=== PATIENT | male | born 1940 | race Caucasian/White ===

== ENCOUNTER → 2016-04-11 | Outpatient (CLI) | payer BC ==
[~2016-04-11] MED LIST: LEVO200T PO; METO25TA3 PO; RIVA1TAB4 PO; SIMV10TA2 PO
[2016-04-11 09:48] LABS: BASO % 0.5 %; BASO ABS # 0.04 K/uL (0-0.2); COMPLETE YES; IG% 0.1 %; LYMPH % 27.2 %; LYMPH ABS # 2.27 K/uL (1.2-3.4); MEAN CELL VOLUME 86.4 fL (80-100); MEAN CORPUSCULAR HEMOGLOBIN 29.5 pg (25-34); MEAN CORPUSCULAR HGB CONC 34.1 g/dl (32-36); MEAN PLATELET VOLUME 9.6 fL (7.4-10.4); NEUT % 56.2 %; PLATELET COUNT 283 K/uL (130-400); RED BLOOD COUNT 5.67 M/uL (4.7-6.1); WHITE BLOOD COUNT 8.35 K/uL (4.8-10.8)
[2016-04-11 10:24] LABS: ALT/SGPT 48 U/L (12-78); BLOOD UREA NITROGEN 14 mg/dl (7-18); BUN/CREATININE RATIO 16.4 (10-20); CALCIUM 8.9 mg/dl (8.5-10.1); CARBON DIOXIDE 28 mmol/L (21-32); CHLORIDE 109 mmol/L (98-107); CREATININE 0.86 mg/dl (0.60-1.40); GLUCOSE 95 mg/dl (70-99); POTASSIUM 4.6 mmol/L (3.5-5.1); SODIUM 145 mmol/L (136-145)
[2016-04-11 10:34] LABS: ALB/GLOB RATIO 1.3 (0.9-2); ALKALINE PHOSPHATASE 104 U/L (45-117); AST/SGOT 24 U/L (15-37); CHOLESTEROL 139 mg/dl (0-200); CHOLESTEROL/HDL RATIO 4.8; HDL CHOLESTEROL 29 mg/dl; LDL CHOLESTEROL CALCULATED 80 mg/dl; THYROID STIMULATING HORMONE 0.067 uIu/ml (0.300-4.500); TRIGLYCERIDES 151 mg/dl (0-150); VERY LOW DENSITY LIPOPROT CALC 30 mg/dl
== END | disposition home or self-care (01) ==
LOC: C.LAB1850 07:23
PROVIDERS: ATTEND Internal Medicine Pulmonary Disease
DX: C67.9 Malignant neoplasm of bladder, unspecified (principal)

== ENCOUNTER → 2017-01-07 | Outpatient (CLI) | payer BC ==
[2017-01-07 09:57] LABS: CHOLESTEROL 120 mg/dl (0-200); CHOLESTEROL/HDL RATIO 4.8; HDL CHOLESTEROL 25 mg/dl; LDL CHOLESTEROL CALCULATED 66 mg/dl; PROSTATE SPECIFIC ANTIGEN < 0.010 ng/ml (0.000-4.000); TRIGLYCERIDES 144 mg/dl (0-150); VERY LOW DENSITY LIPOPROT CALC 29 mg/dl
== END | disposition home or self-care (01) ==
LOC: C.LAB1850 07:17
PROVIDERS: ATTEND Internal Medicine Cardiovascular Disease
DX: C61 Malignant neoplasm of prostate (principal); I10 Essential (primary) hypertension

== ENCOUNTER → 2017-01-29 | Outpatient (CLI) | payer BC | END | disposition home or self-care (01) | LOC: C.PATHSPEC 10:48 | PROVIDERS: ATTEND Urology | DX: C67.9 Malignant neoplasm of bladder, unspecified (principal) ==

== ENCOUNTER → 2017-06-19 | Outpatient (CLI) | payer BC ==
[~2017-06-19] MED LIST changes: -METO25TA3 PO; +METO25TA4 PO
--- NOTE | 2017-06-19 15:27 | DIAGNOSTIC IMAGING REPORT ---
CHEST 2 VIEWS ROUTINE CLINICAL HISTORY: 76 years-old Male presenting with Z00.00 Health Maintenance E03.9 Hypothyroidism C67.9 Carcinoma, shortness of breath and wheezing. TECHNIQUE: PA and lateral views of the chest were obtained. COMPARISON: 03/28/2012. FINDINGS: Atherosclerosis of the aortic arch. Cardiac silhouette top normal in size. Lungs and pleural spaces clear. Osseous structures normal. Cholecystectomy clips noted. IMPRESSION: 1. No acute cardiopulmonary disease. Electronically signed by: Danyel Husain M.D. 06/19/2017 3:26 PM Dictated Date/Time: 06/19/2017 3:25 PM
[2017-06-19 16:31] LABS: BASO % 0.2 %; BASO ABS # 0.03 K/uL (0-0.2); EOS % 0.8 %; HEMATOCRIT 46.4 % (42-52); HEMOGLOBIN 15.7 g/dL (14.0-18.0); IG# 0.03 K/uL (0.00-0.02); LYMPH % 14.9 %; MEAN CELL VOLUME 88.2 fL (80-100); MEAN CORPUSCULAR HEMOGLOBIN 29.8 pg (25-34); MEAN CORPUSCULAR HGB CONC 33.8 g/dl (32-36); MEAN PLATELET VOLUME 9.6 fL (7.4-10.4); MONO % 10.3 %; MONO ABS # 1.25 K/uL (0.11-0.59); NEUT % 73.6 %; NEUT ABS # 8.89 K/uL (1.4-6.5); PLATELET COUNT 296 K/uL (130-400); RED CELL DISTRIBUTION WIDTH CV 13.9 % (11.5-14.5); RED CELL DISTRIBUTION WIDTH SD 45.2 fL (36.4-46.3)
== END | disposition home or self-care (01) ==
LOC: C.RAD1850 15:00
PROVIDERS: ATTEND Internal Medicine Pulmonary Disease
DX: C61 Malignant neoplasm of prostate (principal); C67.9 Malignant neoplasm of bladder, unspecified; E03.9 Hypothyroidism, unspecified; I48.0 Paroxysmal atrial fibrillation; R06.2 Wheezing; Z00.00 Encounter for general adult medical examination without abnormal findings

== ENCOUNTER 2023-12-06 08:50 | Observation (INO) ==
[2023-12-06] MEDS: OPTIRAY 320 125ml IV ONE (09:02)
[2023-12-06] MEDS ORDERED: LABETALOL HCL IV 5 MG/ML 20ML IV PRN (09:20)
--- NOTE | 2023-12-06 09:28 | Emergency Department Note ---
Impression & Plan Visual changes, Facial paresthesia, Left hand paresthesia, HTN (hypertension) ED Provider Note ED Provider Note NAME: JAYCE RANGEL AGE:83 SEX: Male : 1940 ARRIVES VIA: private vehicle INFORMANT: Patient ED PROVIDER(s): Vandana Frazier DO CHIEF COMPLAINT: Vision changes, left face and left hand tingling HPI: This is an 83-year-old male brought in by family due to concern for strokelike symptoms. Patient states he woke at 715 and found his usual state of health. He states sometime between 730 and 8:00 he noticed blurred vision, left facial tingling, and left hand tingling. He denies any prior similar episodes. Patient did have cataract surgery over the summer but states he had recovered well from that and did have follow-up with his medical collections specialist. He states his vision had been well in recent days. Denies any recent change in medications or eyedrops. Denies any trauma or injury. He denies recent fevers or chills. He denied any accompanying difficulty speaking or leg weakness. at bedside states she woke up later and did not see him until approximately 815 when he verbalized these complaints to her. She states he did not appear to have a facial droop or appear off balance with ambulation. She states he does shuffle his feet as he does have Parkinson's disease. She states due to concern for possible stroke she helped him get dressed and brought him here to the emergency department. Patient states at this time he has no facial or left upper extremity paresthesias. He feels his vision is improving although not yet back to normal. Stroke alert called from triage by nursing staff. PAST MEDICAL HISTORY:See Below PAST SURGICAL HISTORY:See Below FAMILY HISTORY:See Below SOCIAL HISTORY:See Below HOME MEDICATIONS:See Below ALLERGIES:See Below VITALS:See Below PHYSICAL EXAMINATION: GENERAL: alert, well appearing, well nourished, no distress, non-toxic EYE EXAM: normal conjunctiva, PERRL and EOM's grossly intact OROPHARYNX: no exudate, no erythema, lips, buccal mucosa, and tongue normal and mucous membranes are moist NECK: supple, no nuchal rigidity, no adenopathy, non-tender LUNGS: Clear to auscultation. Normal chest wall mechanics, no w/r/r HEART: no murmurs, S1 normal and S2 normal ABDOMEN: abdomen soft, non-tender, normo-active bowel sounds, no masses, no rebound or guarding. BACK: Back is symmetrical on inspection and there is no deformity, no midline tenderness, no CVA tenderness. SKIN: no rashes, petechiae, orbruising UPPER EXTREMITIES: upper extremities are grossly normal. FROM, nml pulses b/l. LOWER EXTREMITIES: No pitting edema. FROM, nml pulses b/l. NEURO EXAM: Normal sensorium, cranial nerves II-XII grossly intact, normal speech, no facial droop,nogross weakness of arms, no gross weakness of legs. Gross sensation intact. No ataxia. NIHSS 0. Vital Signs: reviewed and remarkable Differential Diagnosis: Differential Diagnosis includes but is not limited to ischemic Stroke, hemorrhagic stroke, bells palsy, mass, neoplasm, migraine headache, seizure, subarachnoid hemorrhage, TIA, and transient global amnesia. MEDICAL DECISION MAKING: This is an 83-year-old male who presents emergency room with family bedside due to concern for possible strokelike symptoms. He was made a stroke alert in triage and taken immediately to CT. Upon his arrival back in room B1 I was able to perform a bedside exam, speak with him and his , and then contacted [facility]. First blood pressure in triage was elevated, however follow- up blood pressure was improved. Neurology did evaluate the patient at bedside and made additional recommendations. Case discussed with the hospitalist team for additional evaluation and management. Patient's blood pressure did continue to improve without further intervention. He was started on gentle IV fluid hydration as a precaution. Consultation(s): 0927: Discussed with [facility], Dr. Conner. 0955: Received [facility] Text from neuro regarding recommendations including aspirin 324 mg, Plavix 75 mg, atorvastatin 80 mg, all to be given now. 1008: Discussed with Dr. Salazar, [place] hospitalist team, for additional evaluation. ER Treatment Provided: See below Diagnostics Interpreted By Me: -ECG: Normal sinus at 81, first-degree AV block, right bundle branch block, rightward axis, nonspecific ST/T wave changes -Cardiac Monitoring: An order was placed for continuous cardiac monitoring. The monitor shows a rate of 80 with normal sinus rhythm. -Laboratory studies: As stated above and show below. -Imaging studies: CT head: No [facility] Triage Nursing Note Reviewed Prior/Outside Records Reviewed Past Med/Surg History Problem List (Updated 12/06/23 @ 10:27 by Riaz Salazar MD) Stroke-like symptoms Left hand paresthesia (Acute) Facial paresthesia (Acute) Visual changes (Acute) Tremor Parkinsonism Asthma HTN (hypertension) (Acute) A-fib Sensorineural hearing loss (SNHL) of both ears Hypothyroidism Dyslipidemia Transitional cell bladder cancer Right bundle branch block (RBBB) on electrocardiogram (ECG) (Acute) Reactive airway disease (Acute) Diverticulosis of colon (Acute) Disc degeneration, lumbar (Acute) Adenocarcinoma of prostate (Acute) Medical History Diverticulitis Postherpetic neuralgia Herpes zoster Acute cholecystitis Acute pancreatitis Former smoker Lumbar disc disease Visual disturbance Speech abnormality Surgical History H/O colonoscopy (~2006) Hx of tonsillectomy S/P cholecystectomy History of prostate surgery Family History Mother No problems noted. Father No problems noted. 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 Feels Safe at Home: Yes Assistive Devices: Hearing Aid - Bilateral Assistive Devices Comment: partial Allergies Allergies Allergy/AdvReac Type Severity Reaction Status Date / Time mometasone furoate Allergy Verified 12/06/23 10:21 [From Asmmindy Leos] Home Meds Home Medications Medication Instructions Recorded Confirmed ascorbic acid (vitamin C) 500 mg 500 mg PO QAM 03/17/18 12/06/23 tablet (Vitamin C) cyanocobalamin (vitamin B-12) 500 500 mcg PO QAM 03/17/18 12/06/23 mcg tablet (Vitamin B-12) ferrous sulfate 325 mg (65 mg 325 mg PO QAM 03/17/18 12/06/23 iron) tablet (Iron (ferrous sulfate)) levothyroxine 175 mcg tablet 175 mcg PO DAILYBB 09/09/23 12/06/23 metoprolol succinate 25 mg 25 mg PO QPM 12/06/23 12/06/23 tablet,extended release 24 hr multivit,calcium,min-folic acid 1 tab PO DAILY 12/06/23 12/06/23 240 mcg-D3 25 mcg-lycop 300 mcg tablet (One A Day Men Complete) Previous Rx's Medication Instructions Recorded albuterol sulfate 90 mcg/actuation 2 puff inhalation Q6H PRN 06/12/21 aerosol inhaler (ProAir HFA) shortness of breath or wheezing #6.7 grams rivaroxaban 20 mg tablet 20 mg PO DAILY #30 tabs 01/21/23 clopidogrel 75 mg tablet 75 mg PO QAM #90 tabs 02/26/23 simvastatin 10 mg tablet 10 mg PO HS #90 tabs 02/26/23 carbidopa 25 mg-levodopa 100 mg 1 tab PO TID 30 days #90 tabs 12/05/23 tablet (Sinemet) Results & Data (ED) Vital Signs Vital Signs - 24 hr 12/06/23 08:52 12/06/23 09:30 12/06/23 09:32 Temperature 36.3 C L Temperature Source Oral Pulse Rate 78 139 H Pulse Rate [Apical] 104 H Pulse Rate from SpO2 Sensor Pulse Rhythm [Apical] Regular Pulse Strength [Apical] Normal Respiratory Rate 20 16 Respiratory Effort / Characteristics Non-Labored Spontaneous Non-Labored Spontaneous Respiratory Depth Normal Normal Respiratory Pattern Regular Blood Pressure 183/88 H Blood Pressure [Left Arm] 146/89 H Blood Pressure Mean 119 Blood Pressure Mean [Left Arm] 108 Blood Pressure Position [Left Arm] Lying Pulse Oximetry 96 96 Oxygen Delivery Method Room Air Room Air Sepsis Recent Fever Within 48 Hours No Sepsis New/Unexplained Change in Mental Status N/A Sepsis Action Taken by Nursing No Action Required 12/06/23 09:45 12/06/23 09:46 12/06/23 10:00 Temperature Temperature Source Pulse Rate 101 H Pulse Rate [Apical] Pulse Rate from SpO2 Sensor 80 Pulse Rhythm [Apical] Pulse Strength [Apical] Respiratory Rate 15 Respiratory Effort / Characteristics Respiratory Depth Respiratory Pattern Blood Pressure 173/86 H 183/111 H Blood Pressure [Left Arm] Blood Pressure Mean 106 126 Blood Pressure Mean [Left Arm] Blood Pressure Position [Left Arm] Pulse Oximetry 94 Oxygen Delivery Method Room Air Sepsis Recent Fever Within 48 Hours Sepsis New/Unexplained Change in Mental Status Sepsis Action Taken by Nursing 12/06/23 10:03 Temperature Temperature Source Pulse Rate 86 Pulse Rate [Apical] Pulse Rate from SpO2 Sensor 84 Pulse Rhythm [Apical] Pulse Strength [Apical] Respiratory Rate 12 Respiratory Effort / Characteristics Respiratory Depth Respiratory Pattern Blood Pressure Blood Pressure [Left Arm] Blood Pressure Mean Blood Pressure Mean [Left Arm] Blood Pressure Position [Left Arm] Pulse Oximetry 96 Oxygen Delivery Method Room Air Sepsis Recent Fever Within 48 Hours Sepsis New/Unexplained Change in Mental Status Sepsis Action Taken by Nursing Laboratory Data 12/06/23 09:09 12/06/23 09:09 Lab Results 12/06/23 12/06/23 12/06/23 Range/Units 09:09 09:15 09:17 WBC 11.34 H (4.8-10.8) K/ul RBC 5.45 (4.70-6.10) M/uL Hgb 15.8 (14.0-18.0) g/dl POC Hgb 16.0 (14.0-18.0) g/dl Hct 48.6 (42.0-52.0) % POC Hct 47 (42-52) % MCV 89.2 (80.0-100.0) fL MCH 29.0 (25.0-34.0) pg MCHC 32.5 (32.0-36.0) g/dL RDW Std Deviation 45.1 (36.4-46.3) fL RDW Coeff of Anjelica 13.7 (11.5-14.5) % Plt Count 271 (130-400) K/uL MPV 9.2 L (9.4-12.4) fL Immature Gran % (Auto) 0.4 % Neut % (Auto) 69.9 % Lymph % (Auto) 16.7 % Pennington % (Auto) 10.4 % Eos % (Auto) 2.1 % Baso % (Auto) 0.5 % Neut # (Auto) 7.93 H (1.40-6.50) K/uL Lymph # (Auto) 1.89 (1.20-3.40) K/uL Pen[place] # (Auto) 1.18 H (0.11-0.59) K/uL Eos # (Auto) 0.24 (0.00-0.50) K/uL Baso # (Auto) 0.06 (0.00-0.20) K/uL Immature Gran # (Auto) 0.04 (0.01-0.20) K/uL PT 10.6 (9.0-12.0) Seconds INR 1.0 (0.9-1.1) APTT 29 (21-31) Seconds PTT Ratio 1.1 POC Sodium 142 (135-144) mmol/L Sodium 140 (136-145) mmol/L POC Potassium 4.2 (3.3-5.0) mmol/L Potassium 4.2 (3.5-5.1) mmol/L POC Chloride 105 (101-112) mmol/L Chloride 107 (98-107) mmol/L Carbon Dioxide 29 (21-32) mmol/L POC Total CO2 24 (24-31) mmol/L Anion Gap 4 (3-11) POC Anion Gap 18.0 (16-25) mmol/L POC BUN 15 (7-18) mg/dl BUN 15 (6-23) mg/dl Creatinine 0.84 (0.6-1.4) mg/dl POC Creatinine 0.8 (0.6-1.3) mg/dl Est Cr Clr Drug Dosing 62.2 ml/min Est GFR ( Amer) 92.5 ml/min Est GFR (Non-Af Amer) 79.8 ml/min BUN/Creatinine Ratio 17.9 (10-20) Glucose 103 H (70-99(Fasting)) mg/dl POC Glucose 94 (70-99) mg/dl POC Glucose (other) 104 H (70-99) mg/dl Calcium 9.0 (8.6-10.3) mg/dl POC Ioniz Calcium Lamont 1.20 (1.12-1.32) mmol/l Magnesium 2.3 (1.7-2.4) mg/dl Total Bilirubin 0.9 (0.2-1.0) mg/dl AST 23 (13-39) U/L ALT 17 (7-52) U/L Alkaline Phosphatase 85 (34-104) U/L Troponin I High Sens 9.1 (0-20) pg/ml Total Protein 6.3 (6.0-8.3) gm/dl Albumin 4.1 (3.4-5.0) gm/dl Globulin 2.2 L (2.5-4.0) gm/dl Albumin/Globulin Ratio 1.9 (0.9-2) Administered Medications Acetaminophen (Acetaminophen 325 Mg Tab) 650 mg PO Q4H PRN PRN Reason: Pain of Fever Stop: 01/05/24 14:15 Last Admin: 12/06/23 14:42 Dose: 650 mg Documented By: UZMA Carbidopa/Levodopa (Carbidopa/Levodopa 25/100mg Tab) 1 tab PO TID CYNTHIA Stop: 01/05/24 13:59 Last Admin: 12/06/23 14:42 Dose: 1 tab Documented By: UZMA Lactated Ringer's (Lr) 1,000 mls @ 100 mls/hr IV .Q10H CYNTHIA Stop: 12/06/23 22:14 Last Admin: 12/06/23 12:42 Dose: 100 mls/hr Documented By: UZMA Discontinued Medications Aspirin (Aspirin 325 Mg Ectab) 325 mg PO NOW STA Stop: 12/06/23 09:57 Last Admin: 12/06/23 10:18 Dose: 325 mg Documented By: GLORIA Atorvastatin Calcium (Atorvastatin 40 Mg Tab) 80 mg PO NOW STA Stop: 12/06/23 09:57 Last Admin: 12/06/23 10:19 Dose: 80 mg Documented By: GLORIA Clopidogrel Bisulfate (Clopidogrel Bisulfate 75 Mg Tab) 75 mg PO NOW ONE Stop: 12/06/23 09:57 Last Admin: 12/06/23 10:18 Dose: 75 mg Documented By: GLROIA Sodium Chloride (Nss) 1,000 mls @ 100 mls/hr IV .Q10H CYNTHIA Stop: 01/05/24 08:59 Last Infusion: 12/06/23 12:17 Dose: Infused Documented By: Admin: 12/06/23 10:16 Dose: 100 mls/hr Documented By: ANDRA Ioversol (Optiray 320 125ml) 119 ml IV ONCE ONE Stop: 12/06/23 09:02 Last Admin: 12/06/23 09:02 Dose: 1 ml Documented By: ABDI Imaging Data Radiologist's Impression: Chest X-Ray 12/06/23 08:57 XR chest 1V portable HISTORY: neuro deficit, acute stroke suspected COMPARISON: Chest 04/27/2019. FINDINGS: No pneumothorax. No pleural effusions. Mild chronic interstitial thickening remains unchanged. No new focal lung consolidations to suggest a pneumonia. No evidence for pulmonary edema. No acute fractures. The heart remains mildly enlarged. There is a small hiatus hernia. Calcifications within the aortic knob. IMPRESSION: No significant change compared to the prior study. No acute process. ACT 112: Negative or not required by law. Electronically signed by: Eliceo Caro M.D. 12/06/2023 10:[address] 12/06/23 08:[address] DOSE: 1130.41 mGy.cm HISTORY: neuro deficit, acute stroke suspected TECHNIQUE: Multiaxial CT images of the head were performed without the use of intravenous contrast. Automated exposure control was utilized for this study. A dose lowering technique was utilized adhering to the principles of ALARA. Comparison: Brain MRI 11/30/2014. Findings: Mild mucosal thickening within the ethmoid air cells. The mastoid air cells are clear. The calvarium and skull base are intact. The ventricles and sulci are within normal limits. There is no mass, hematoma, midline shift, or acute infarct. Impression: No acute intracranial abnormality. ACT 112: Negative or not required by law. Electronically signed by: Eliceo Caro M.D. 12/06/2023 9:48 AM Head CTA 12/06/23 08:57 CT angio head w con CLINICAL HISTORY: 83 years-old Male with neuro deficit, acute stroke suspected. Acute stroke like symptoms with left-sided numbness COMPARISON STUDY: Head CT of same day, brain MRI 11/30/2014 TECHNIQUE: Following the IV administration of 119 cc of Optiray, CT angiogram of the brain was performed from the skull base to the vertex. Images are reviewed in the axial, sagittal, and coronal planes. 3-D MIPS images are created and assessed. IV contrast was administered without complication. All measurements were obtained according to NASCET criteria. A dose lowering technique was utilized adhering to the principles of ALARA. FINDINGS: CT ANGIOGRAM OF THE BRAIN: The imaged bilateral internal carotid arteries are patent. The bilateral anterior and middle cerebral arteries are also patent. The vertebrobasilar system and posterior cerebral arteries are widely patent. There is no aneurysm, high-grade stenosis, or proximal branch occlusion identified. Fenestrated basilar artery. There is moderate multifocal luminal narrowing of the left posterior cerebral artery. Dural sinuses appear patent. Involutional changes with chronic microvascular ischemic disease. 1.5 mm calcification noted along the anterior aspect of the falx cerebri. There is moderate mucosal thickening of the ethmoid air cells. IMPRESSION: 1. Unremarkable CTA of the head. 2. Fenestrated basilar artery. ACT 112: Negative or not required by law. The above report was generated using voice recognition software. It may contain grammatical, syntax or spelling errors. Electronically signed by: Channing Galeas M.D. 12/06/2023 9:36 AM Neck CTA 12/06/23 08:57 NECK CTA HISTORY: neuro deficit, acute stroke suspected TECHNIQUE: Multiaxial CT images of the neck were performed following the intravenous administration of contrast to evaluate the major cervical vessels. 3D/MIP images were also obtained. Sagittal and coronal reformats were reviewed. All measurements were calculated based on NASCET criteria. A dose lowering technique was utilized adhering to the principles of ALARA. COMPARISON STUDY: None. FINDINGS: The aortic arch and proximal great vessels are widely patent. There is no significant stenosis, occlusion, or dissection identified within the bilateral common carotid, left internal carotid, or vertebral arteries. Mild atherosclerotic plaque within the bilateral carotid bifurcations. There is a focal area of approximately 30 % stenosis within the proximal right internal carotid artery due to the atherosclerotic plaque. This is best seen on image 238. IMPRESSION: 1. A focal area of approximately 30% stenosis within the proximal right internal carotid artery due to the atherosclerotic plaque. 2. Otherwise, no significant stenosis, occlusion, or dissection within the remaining bilateral carotid or vertebral arteries. ACT 112: Negative or not required by law. Electronically signed by: Eliceo Caro M.D. 12/06/2023 9:52 AM Brain MRI 12/06/23 10:06 MRI OF THE BRAIN WITHOUT CONTRAST CLINICAL HISTORY: b/l blurrying vision, paresthsias left arm + cheek COMPARISON STUDY: MRI of the brain November 30, 2014. Head CT and CTA of the head December 06, 2023. TECHNIQUE: Utilizing a 1.5 Odalis magnet and dedicated coil, multiplanar, multiecho imaging of the brain was performed without IV contrast. FINDINGS: There are no foci of restricted diffusion to suggest acute infarct. No acute intracranial hemorrhage, midline shift or mass effect is present. Ventricular system is unremarkable. The basal cisterns are patent. There are no extra-axial collections. There is mild atrophy. Numerous white matter T2 hyperintense foci have mildly progressed since MRI November 30, 2014. These favor small vessel disease. No intracranial masses are identified on unenhanced examination. There is mild ethmoid sinus mucosal thickening. There is no mastoid fluid. IMPRESSION: No acute intracranial findings. ACT 112: Negative or not required by law. Electronically signed by: Sachin Mendoza M.D. 12/06/2023 11:23 AM Discharge Plan Visit Data Chief Complaint: Visual Disturbance ED Provider: Vandana Frazier Discharge Problem: Visual changes, Facial paresthesia, Left hand paresthesia, HTN (hypertension) Patient Disposition: Admitted As Inpatient Discharge Instructions Interventions: ED Discharge Assessment Last Done: 12/06/23 11:51
[2023-12-06 09:29] LABS: Basophils # (auto) 0.06 K/uL (0.00-0.20); Basophils % (auto) 0.5 %; Eosinophils # (auto) 0.24 K/uL (0.00-0.50); Eosinophils % (auto) 2.1 %; Hematocrit (blood only) 48.6 % (42.0-52.0); Hemoglobin 15.8 g/dl (14.0-18.0); Immature Granulocytes # (auto) 0.04 K/uL (0.01-0.20); Immature Granulocytes % (auto) 0.4 %; Lymphocytes # (auto) 1.89 K/uL (1.20-3.40); Lymphocytes % (auto) 16.7 %; Mean Corpuscular Hgb Conc 32.5 g/dL (32.0-36.0); Mean Corpuscular Volume 89.2 fL (80.0-100.0); Mean Platelet Volume 9.2 fL (9.4-12.4); Monocytes # (auto) 1.18 K/uL (0.11-0.59); Monocytes % (auto) 10.4 %; Neutrophils # (auto) 7.93 K/uL (1.40-6.50); Neutrophils % (auto) 69.9 %; Platelet Count 271 K/uL (130-400); RDW Coefficient of Variation 13.7 % (11.5-14.5); RDW Standard Deviation 45.1 fL (36.4-46.3); Red Blood Count 5.45 M/uL (4.70-6.10); White Blood Count 11.34 K/ul (4.8-10.8)
[2023-12-06 09:30] LABS: iSTAT Creatinine 0.8 mg/dl (0.6-1.3); iSTAT Ionized Calcium 1.2 mmol/l (1.12-1.32); iSTAT Potassium 4.2 mmol/L (3.3-5.0)
--- NOTE | 2023-12-06 09:39 | CT Scan Report ---
CT angio head w con CLINICAL HISTORY: 83 years-old Male with neuro deficit, acute stroke suspected. Acute stroke like symptoms with left-sided numbness COMPARISON STUDY: Head CT of same day, brain MRI 11/30/2014 TECHNIQUE: Following the IV administratio n of 119 cc of Optiray, CT angiogram of the brain was performed from the skull base to the vertex. Im ages are reviewed in the axial, sagittal, and coronal planes. 3-D MIPS images are created and assesse d. IV contrast was administered without complication. All measurements were obtained according to SUZAN CET criteria. A dose lowering technique was utilized adhering to the principles of ALARA. FINDINGS: CT ANGIOGRAM OF THE BRAIN: The imaged bilateral internal carotid arteries are patent. The bilateral anterior and middle cerebral arteries are also patent. The vertebrobasilar system and posterior cerebral arteries are widely saini nt. There is no aneurysm, high-grade stenosis, or proximal branch occlusion identified. Fenestrated b asilar artery. There is moderate multifocal luminal narrowing of the left posterior cerebral artery. Dural sinuses appear patent. Involutional changes with chronic microvascular ischemic disease. 1.5 mm calcification noted along th e anterior aspect of the falx cerebri. There is moderate mucosal thickening of the ethmoid air cells. IMPRESSION: 1. Unremarkable CTA of the head. 2. Fenestrated basilar artery. ACT 112: Negative or not required by law. The above report was generated using voice recognition software. It may contain grammatical, syntax o r spelling errors. Electronically signed by: Channing Galeas M.D. 12/06/2023 9:36 AM
[2023-12-06 09:46] LABS: Albumin Globulin Ratio 1.9 (0.9-2); Albumin Level 4.1 gm/dl (3.4-5.0); BUN Creatinine Ratio 17.9 (10-20); Bilirubin,Total 0.9 mg/dl (0.2-1.0); Creatinine Clr Calc Pharmacy 62.2 ml/min; Est GFR (African American) 92.5 ml/min; Est GFR (Non-African American) 79.8 ml/min; Globulin 2.2 gm/dl (2.5-4.0); Magnesium 2.3 mg/dl (1.7-2.4); Potassium 4.2 mmol/L (3.5-5.1); Total Protein 6.3 gm/dl (6.0-8.3)
--- NOTE | 2023-12-06 09:51 | CT Scan Report ---
HEAD CT NONCONTRAST CT DOSE: 1130.41 mGy.cm HISTORY: neuro deficit, acute stroke suspected TECHNIQUE: Multiaxial CT images of the head were performed without the use of intravenous contrast. A utomated exposure control was utilized for this study. A dose lowering technique was utilized adheri ng to the principles of ALARA. Comparison: Brain MRI 11/30/2014. Findings: Mild mucosal thickening within the ethmoid air cells. The mastoid air cells are clear. The calvarium and skull base are intact. The ventricles and sulci are within normal limits. There is no m ass, hematoma, midline shift, or acute infarct. Impression: No acute intracranial abnormality. ACT 112: Negative or not required by law. Electronically signed by: Eliceo Caro M.D. 12/06/2023 9:48 AM
[2023-12-06 09:52] LABS: Troponin I High Sensitivity 9.1 pg/ml (0-20)
--- NOTE | 2023-12-06 09:54 | CT Scan Report ---
NECK CTA HISTORY: neuro deficit, acute stroke suspected TECHNIQUE: Multiaxial CT images of the neck were performed following the intravenous administration o f contrast to evaluate the major cervical vessels. 3D/MIP images were also obtained. Sagittal and cor onal reformats were reviewed. All measurements were calculated based on NASCET criteria. A dose low ering technique was utilized adhering to the principles of ALARA. COMPARISON STUDY: None. FINDINGS: The aortic arch and proximal great vessels are widely patent. There is no significant sten osis, occlusion, or dissection identified within the bilateral common carotid, left internal carotid, or vertebral arteries. Mild atherosclerotic plaque within the bilateral carotid bifurcations. There is a focal area of approximately 30 % stenosis within the proximal right internal carotid artery due to the atherosclerotic plaque. This is best seen on image 238. IMPRESSION: 1. A focal area of approximately 30% stenosis within the proximal right internal carotid artery due t o the atherosclerotic plaque. 2. Otherwise, no significant stenosis, occlusion, or dissection within the remaining bilateral caroti d or vertebral arteries. ACT 112: Negative or not required by law. Electronically signed by: Eliceo Caro M.D. 12/06/2023 9:52 AM
[2023-12-06 10:03] LABS: Partial Thromboplastin Ratio 1.1; Partial Thromboplastin Time 29 Seconds (21-31); Prothrombin Time 10.6 Seconds (9.0-12.0)
[2023-12-06] MEDS: SODIUM CHLORIDE 0.9% 1,000 ML IV SCH (10:16)
[2023-12-06] MEDS: ASPIRIN 325 MG ECTAB PO STA (10:18)
[2023-12-06] MEDS: CLOPIDOGREL BISULFATE 75 MG TAB PO ONE (10:18)
[2023-12-06] MEDS: ATORVASTATIN 40 MG TAB PO STA (10:19)
--- NOTE | 2023-12-06 10:26 | History & Physical Report ---
Date of Service December 06, 2023 Assessment & Plan (1) Stroke-like symptoms: Plan: Symptoms mostly resolved when seen but still having some blurring vision. CVA vs. complex migraine Brain MRI NIH stroke checks Lipid panel and HbA1C with AM labs Given advance age and LDL previously < 70 will continue on his usual simvastatin. Continue clopidogrel, unless stroke present on MRI will hold off further aspirin TTE (2) Headache: Plan: Stroke-like symptom workup as above Patient reports this is similar to his prior headaches that have been diagnosed as migraines Acetaminophen PRN (3) A-fib: Plan: Paroxysmal Continue Xarelto for anticoagulation (4) Parkinsonism: Plan: Continue Sinemet - note recently increased today after neurology appointment yesterday Plan VTE Prophylaxis - Xarelto Diet - heart healthy Disposition - observation to med/tele Admission and Anticipated Discharge Date Admission Date: December 06, 2023 History of Present Illness Chief Complaint: Blurring vision Left sided paresthesias Primary Care Provider: Christopher Lawler MD Christopher Haskins is an 83 year old male with Parkinson's disease who presents to the ER with sudden blurring of vision with left cheek and left hand paresthesias. He woke up this morning without symptoms. Symptoms started between 7:30am and 8am with blurred vision, left facial tingling and left hand tingling. No facial droop, extremity weakness, change in speech or hearing. He has otherwise been in his normal state of health. No respiratory, gastrointestinal or urinary complaints. Since coming to the ER his bilateral vision blurring has been improving and he is able to read more. Paresthesias have resolved. His notes a similar episode a few years ago and diagnosed with complex migraine at that time - they report coming to [facility] although I am unable to find any admissions in [facility] and not on his problem list. He reports having "migrainous" headaches rarely, he describes these as bilateral oriental orthodox pain, non pounding, lasting for hours. His symptoms this morning was related to a headache. He does currently complain of a similar headache to his normal with severity 10/25. Allergies Allergy/AdvReac Type Severity Reaction Status Date / Time mometasone furoate Allergy Verified 12/06/23 10:21 [From [facility] Home Medications Medication Instructions Recorded Confirmed Type ascorbic acid (vitamin C) 500 mg 500 mg PO QAM 03/17/18 12/06/23 History tablet (Vitamin C) cyanocobalamin (vitamin B-12) 500 500 mcg PO QAM 03/17/18 12/06/23 History mcg tablet (Vitamin B-12) ferrous sulfate 325 mg (65 mg 325 mg PO QAM 03/17/18 12/06/23 History iron) tablet (Iron (ferrous sulfate)) albuterol sulfate 90 mcg/actuation 2 puff inhalation Q6H PRN 06/12/21 12/06/23 Rx aerosol inhaler (ProAir HFA) shortness of breath or wheezing #6.7 grams rivaroxaban 20 mg tablet 20 mg PO DAILY #30 tabs 01/21/23 12/06/23 Rx clopidogrel 75 mg tablet 75 mg PO QAM #90 tabs 02/26/23 12/06/23 Rx simvastatin 10 mg tablet 10 mg PO HS #90 tabs 02/26/23 12/06/23 Rx levothyroxine 175 mcg tablet 175 mcg PO DAILYBB 09/09/23 12/06/23 History carbidopa 25 mg-levodopa 100 mg 1 tab PO TID 30 days #90 tabs 12/05/23 12/06/23 Rx tablet (Sinemet) metoprolol succinate 25 mg 25 mg PO QPM 12/06/23 12/06/23 History tablet,extended release 24 hr multivit,calcium,min-folic acid 1 tab PO DAILY 12/06/23 12/06/23 History 240 mcg-D3 25 mcg-lycop 300 mcg tablet (One A Day Men Complete) Past Med/Surg History Problem List (Updated 12/07/23 @ 07:21 by Riaz Salazar MD) Headache Stroke-like symptoms Left hand paresthesia (Acute) Facial paresthesia (Acute) Visual changes (Acute) Tremor Parkinsonism Asthma HTN (hypertension) (Acute) A-fib Sensorineural hearing loss (SNHL) of both ears Hypothyroidism Dyslipidemia Transitional cell bladder cancer Right bundle branch block (RBBB) on electrocardiogram (ECG) (Acute) Reactive airway disease (Acute) Diverticulosis of colon (Acute) Disc degeneration, lumbar (Acute) Adenocarcinoma of prostate (Acute) Medical History Diverticulitis Postherpetic neuralgia Herpes zoster Acute cholecystitis Acute pancreatitis Former smoker Lumbar disc disease Visual disturbance Speech abnormality Surgical History H/O colonoscopy (~2006) Hx of tonsillectomy S/P cholecystectomy History of prostate surgery Family History Mother No problems noted. Father No problems noted. 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 Feels Safe at Home: Yes Assistive Devices: Hearing Aid - Bilateral Assistive Devices Comment: partial Review of Systems Review of Systems: All systems reviewed & are unremarkable except as noted in HPI & below Physical Exam Constitutional: well developed and + frail appearing; + not well nourished and no acute distress Eyes: PERRL, conjunctivae normal, anicteric sclerae EOM intact bilaterally ENMT: external ear and nose normal, oropharynx normal Respiratory: normal respiratory effort, lungs clear to auscultation Cardiovascular: RRR, no murmur, no edema Gastrointestinal (Abdomen): normal bowel sounds, soft, nontender, no hepatosplenomegaly Neurologic: moves all extremities and awake; no focal motor deficits and not confused Speech / Cognition: normal speech Motor/Sensory: + tremor (mild resting); no pronator drift and no sensory deficit Cranial Nerves: PERRL, EOM intact bilaterally, normal facial strength, able to rotate head bilaterally, able to elevate shoulders bilaterally, no nystagmus and symmetric palate elevation Coordination: normal [id number] test Psychiatric: Orientation: alert, oriented to person and oriented to place; + not oriented to time Results & Data Results & Data Vital Signs (Past 12 Hours) Vital Signs Temp Pulse Pulse Resp BP BP Pulse Ox 12/06/23 10:03 86 12 96 12/06/23 10:00 183/111 H 12/06/23 09:46 173/86 H 12/06/23 09:45 101 H 15 94 12/06/23 09:32 139 H 12/06/23 09:30 104 H 16 146/89 H 96 12/06/23 08:52 36.3 C L 78 20 183/88 H 96 O2 Del Method 12/06/23 10:03 Room Air 12/06/23 10:00 12/06/23 09:46 12/06/23 09:45 Room Air 12/06/23 09:32 12/06/23 09:30 Room Air 12/06/23 08:52 Room Air Laboratory Results Abnormal lab results 12/06/23 12/06/23 Range/Units 09:09 09:17 WBC 11.34 H (4.8-10.8) K/ul MPV 9.2 L (9.4-12.4) fL Neut # (Auto) 7.93 H (1.40-6.50) K/uL [place] # (Auto) 1.18 H (0.11-0.59) K/uL Glucose 103 H (70-99(Fasting)) mg/dl POC Glucose (other) 104 H (70-99) mg/dl Globulin 2.2 L (2.5-4.0) gm/dl Diagnostic Findings HEAD CT NONCONTRAST CT DOSE: 1130.41 mGy.cm HISTORY: neuro deficit, acute stroke suspected TECHNIQUE: Multiaxial CT images of the head were performed without the use of intravenous contrast. Automated exposure control was utilized for this study. A dose lowering technique was utilized adhering to the principles of ALARA. Comparison: Brain MRI 11/30/2014. Findings: Mild mucosal thickening within the ethmoid air cells. The mastoid air cells are clear. The calvarium and skull base are intact. The ventricles and sulci are within normal limits. There is no mass, hematoma, midline shift, or acute infarct. Impression: No acute intracranial abnormality. CT angio head w con CLINICAL HISTORY: 83 years-old Male with neuro deficit, acute stroke suspected. Acute stroke like symptoms with left-sided numbness COMPARISON STUDY: Head CT of same day, brain MRI 11/30/2014 TECHNIQUE: Following the IV administration of 119 cc of Optiray, CT angiogram of the brain was performed from the skull base to the vertex. Images are reviewed in the axial, sagittal, and coronal planes. 3-D MIPS images are created and assessed. IV contrast was administered without complication. All measurements were obtained according to NASCET criteria. A dose lowering technique was utilized adhering to the principles of ALARA. FINDINGS: CT ANGIOGRAM OF THE BRAIN: The imaged bilateral internal carotid arteries are patent. The bilateral anterior and middle cerebral arteries are also patent. The vertebrobasilar system and posterior cerebral arteries are widely patent. There is no aneurysm, high-grade stenosis, or proximal branch occlusion identified. Fenestrated basilar artery. There is moderate multifocal luminal narrowing of the left posterior cerebral artery. Dural sinuses appear patent. Involutional changes with chronic microvascular ischemic disease. 1.5 mm mitzi cification noted along the anterior aspect of the falx cerebri. There is moderate mucosal thickening of the ethmoid air cells. IMPRESSION: 1. Unremarkable CTA of the head. 2. Fenestrated basilar artery. NECK CTA HISTORY: neuro deficit, acute stroke suspected TECHNIQUE: Multiaxial CT images of the neck were performed following the intravenous administration of contrast to evaluate the major cervical vessels. 3D/MIP images were also obtained. Sagittal and coronal reformats were reviewed. All measurements were calculated based on NASCET criteria. A dose lowering technique was utilized adhering to the principles of ALARA. COMPARISON STUDY: None. FINDINGS: The aortic arch and proximal great vessels are widely patent. There is no significant stenosis, occlusion, or dissection identified within the bilateral common carotid, left internal carotid, or vertebral arteries. Mild atherosclerotic plaque within the bilateral carotid bifurcations. There is a focal area of approximately 30 % stenosis within the proximal right internal carotid artery due to the atherosclerotic plaque. This is best seen on image 238. IMPRESSION: 1. A focal area of approximately 30% stenosis within the proximal right internal carotid artery due to the atherosclerotic plaque. 2. Otherwise, no significant stenosis, occlusion, or dissection within the remaining bilateral carotid or vertebral arteries. Medications Administered ER Medications Given: ASA 325mg PO Clopidogrel 75mg PO Atorvastatin 80mg PO NSS @ 100ml/hr ECG Rate (beats per minute): 81 Rhythm: sinus with SA Findings: + 1st degree AV block Comparison ECG Date: from (March 17, 2018) Change: the following changes noted (PVCs no longer present) Code Status & VTE Plan Code Status Full VTE Prophylaxis Plan VTE Prophylaxis will be ordered: Yes PG Care Time/CCT Total # of Minutes Spent Total Time Spent with Patient: Total time spent is greater than 50% in coordination of care (as documented) at patient's floor/unit and/or counseling patient: Coding Level of Care Code 78173 INT INP/OBS CARE MIN Diagnoses Stroke-like symptoms R29.90 Headache R51.9 A-fib I48.91 Parkinsonism G20.C
--- NOTE | 2023-12-06 10:46 | XRay Report ---
XR chest 1V portable HISTORY: neuro deficit, acute stroke suspected COMPARISON: Chest 04/27/2019. FINDINGS: No pneumothorax. No pleural effusions. Mild chronic interstitial thickening remains unchang ed. No new focal lung consolidations to suggest a pneumonia. No evidence for pulmonary edema. No acut e fractures. The heart remains mildly enlarged. There is a small hiatus hernia. Calcifications within the aortic knob. IMPRESSION: No significant change compared to the prior study. No acute process. ACT 112: Negative or not required by law. Electronically signed by: Eliceo Caro M.D. 12/06/2023 10:44 AM
--- NOTE | 2023-12-06 11:25 | Magnetic Resonance Report ---
MRI OF THE BRAIN WITHOUT CONTRAST CLINICAL HISTORY: b/l blurrying vision, paresthsias left arm + cheek COMPARISON STUDY: MRI of the brain November 30, 2014. Head CT and CTA of the head December 06, 2023 . TECHNIQUE: Utilizing a 1.5 Odalis magnet and dedicated coil, multiplanar, multiecho imaging of the bra in was performed without IV contrast. FINDINGS: There are no foci of restricted diffusion to suggest acute infarct. No acute intracranial h emorrhage, midline shift or mass effect is present. Ventricular system is unremarkable. The basal cis terns are patent. There are no extra-axial collections. There is mild atrophy. Numerous white matter T2 hyperintense foci have mildly progressed since MRI November 30, 2014. These favor small vessel di sease. No intracranial masses are identified on unenhanced examination. There is mild ethmoid sinus m ucosal thickening. There is no mastoid fluid. IMPRESSION: No acute intracranial findings. ACT 112: Negative or not required by law. Electronically signed by: Sachin Mendoza M.D. 12/06/2023 11:23 AM
[2023-12-06] MEDS ORDERED: PHARMACIST DISCHARGE MED REC CONSULT PRN (12:15)
[2023-12-06] MEDS: LACTATED RINGER'S 1,000 ML IV SCH (12:42)
--- NOTE | 2023-12-06 13:09 | Electrocardiogram Report ---
Test Reason : Blood Pressure : */* mmHG Vent. Rate : 81 BPM Atrial Rate : 81 BPM P-R Int : 346 ms QRS Dur : 118 ms QT Int : 406 ms P-R-T Axes : 56 111 3 degrees QTcB Int : 471 ms Sinus rhythm with sinus arrhythmia with 1st degree A-V block Right bundle branch block Possible Lateral infarct (cited on or before 15-Aug-2010) Abnormal ECG When compared with ECG of 17-Mar-2018 13:31, Premature ventricular complexes are no longer Present MO interval has increased Confirmed by Giovanni Titus ([id number]) on 12/06/2023 1:09:02 PM Referred By: REFERRED SELF Confirmed By: Giovanni Titus
[2023-12-06] MEDS: CARBIDOPA/LEVODOPA 25/100MG TAB PO SCH (14:42)
[2023-12-06] MEDS: ACETAMINOPHEN 325 MG TAB PO PRN (14:42)
[2023-12-06] MEDS: METOPROLOL SUCC 25MG EXT REL TAB PO SCH (20:15)
[2023-12-06] MEDS: SIMVASTATIN 10 MG TAB PO SCH (20:16)
[2023-12-07] MEDS: LEVOTHYROXINE SODIUM 175 MCG TABLET PO SCH (05:38)
[2023-12-07 06:47] LABS: Basophils # (auto) 0.04 K/uL (0.00-0.20); Basophils % (auto) 0.3 %; Eosinophils % (auto) 1.7 %; Hematocrit (blood only) 44.6 % (42.0-52.0); Hemoglobin 14.6 g/dl (14.0-18.0); Immature Granulocytes # (auto) 0.03 K/uL (0.01-0.20); Immature Granulocytes % (auto) 0.3 %; Lymphocytes # (auto) 1.66 K/uL (1.20-3.40); Mean Corpuscular Hemoglobin 29.1 pg (25.0-34.0); Mean Corpuscular Hgb Conc 32.7 g/dL (32.0-36.0); Mean Corpuscular Volume 88.8 fL (80.0-100.0); Mean Platelet Volume 9.5 fL (9.4-12.4); Monocytes # (auto) 1.24 K/uL (0.11-0.59); Monocytes % (auto) 10.5 %; Neutrophils # (auto) 8.68 K/uL (1.40-6.50); Neutrophils % (auto) 73.2 %; Platelet Count 281 K/uL (130-400); RDW Coefficient of Variation 13.8 % (11.5-14.5); RDW Standard Deviation 44.7 fL (36.4-46.3); Red Blood Count 5.02 M/uL (4.70-6.10); White Blood Count 11.85 K/ul (4.8-10.8)
[2023-12-07 07:10] LABS: BUN Creatinine Ratio 19.8 (10-20); Calcium 8.4 mg/dl (8.6-10.3); Creatinine Clr Calc Pharmacy 60.8 ml/min; Est GFR (African American) 91.6 ml/min; Est GFR (Non-African American) 79.1 ml/min; Potassium 4.4 mmol/L (3.5-5.1)
[2023-12-07 07:44] LABS: Estimated Average Glucose 120 mg/dl; Hemoglobin A1C 5.8 % (4.5-5.6)
--- NOTE | 2023-12-07 08:03 | Neurology Consultation ---
Date of Consultation December 07, 2023 Assessment & Plan (1) Headache: History of Present Illness Attending Physician: Leatha Mojica MD History of Present Illness pt this morning feeling well. no more symptoms. mri brain negative. chart reviewed. pt wants to go home. headache also resolved. admission HPI: Christopher Haskins is an 83 year old male with Parkinson's disease who presents to the ER with sudden blurring of vision with left cheek and left hand paresthesias. He woke up this morning without symptoms. Symptoms started between 7:30am and 8am with blurred vision, left facial tingling and left hand tingling. No facial droop, extremity weakness, change in speech or hearing. He has otherwise been in his normal state of health. No respiratory, gastrointestinal or urinary complaints. Since coming to the ER his bilateral vision blurring has been improving and he is able to read more. Paresthesias have resolved. His notes a similar episode a few years ago and diagnosed with complex migraine at that time - they report coming to [facility] although I am unable to find any admissions in [facility] and not on his problem list. He reports having "migrainous" headaches rarely, he describes these as bilateral hinduism pain, non pounding, lasting for hours. His symptoms this morning was related to a headache. He does currently complain of a similar headache to his normal with severity 10/25. Allergies Allergy/AdvReac Type Severity Reaction Status Date / Time mometasone furoate Allergy Verified 12/06/23 10:21 [From Asmmindy Leos] Home Medications Medication Instructions Recorded Confirmed Type ascorbic acid (vitamin C) 500 mg 500 mg PO QAM 03/17/18 12/06/23 History tablet (Vitamin C) cyanocobalamin (vitamin B-12) 500 500 mcg PO QAM 03/17/18 12/06/23 History mcg tablet (Vitamin B-12) ferrous sulfate 325 mg (65 mg 325 mg PO QAM 03/17/18 12/06/23 History iron) tablet (Iron (ferrous sulfate)) albuterol sulfate 90 mcg/actuation 2 puff inhalation Q6H PRN 06/12/21 12/06/23 Rx aerosol inhaler (ProAir HFA) shortness of breath or wheezing #6.7 grams rivaroxaban 20 mg tablet 20 mg PO DAILY #30 tabs 01/21/23 12/06/23 Rx clopidogrel 75 mg tablet 75 mg PO QAM #90 tabs 02/26/23 12/06/23 Rx simvastatin 10 mg tablet 10 mg PO HS #90 tabs 02/26/23 12/06/23 Rx levothyroxine 175 mcg tablet 175 mcg PO DAILYBB 09/09/23 12/06/23 History carbidopa 25 mg-levodopa 100 mg 1 tab PO TID 30 days #90 tabs 12/05/23 12/06/23 Rx tablet (Sinemet) metoprolol succinate 25 mg 25 mg PO QPM 12/06/23 12/06/23 History tablet,extended release 24 hr multivit,calcium,min-folic acid 1 tab PO DAILY 12/06/23 12/06/23 History 240 mcg-D3 25 mcg-lycop 300 mcg tablet (One A Day Men Complete) Patient History Medical History Diverticulitis Postherpetic neuralgia Herpes zoster Acute cholecystitis Acute pancreatitis Former smoker Lumbar disc disease Visual disturbance Speech abnormality Surgical History H/O colonoscopy (~2006) Hx of tonsillectomy S/P cholecystectomy History of prostate surgery Family History Mother No problems noted. Father No problems noted. 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 5/5 t/o bilaterally Sens: intact to touch b/l grossly Coord: intact FNT b/l DTR: 1+ sym b/l Impression: 83 yo male with transient limb paresthesia and vision change in setting of headache. now resolved symptoms and mri brain negative. Likely headac he syndrome related. Recommendations: no further work up needed from neurology at this point. avoid dehydration ok for discharge. call if new question. Chart reviewed I have spent more than 50% educating patient about potential diagnosis and neurological evaluation and coordinating care with patient's treatment team. Total time spent (including chart review and coordination of care): 45 min (this includes chart review). Results & Data Vital Signs (Past 12 Hours) Vital Signs Temp Pulse Pulse Resp BP Pulse Ox O2 Del Method 12/07/23 07:16 61 12/07/23 02:38 36.4 C L 77 18 119/62 96 Room Air 12/06/23 23:05 78 12/06/23 22:29 36.7 C 92 H 18 120/68 92 Room Air PG Care Time/CCT Total # of Minutes Spent Total Time Spent with Patient: Total time spent is greater than 50% in coordination of care (as documented) at patient's floor/unit and/or counseling patient: Coding Level of Care Code 41287 IN/OBS CONSULT LVL 3,45M Diagnoses Other headache syndrome G44.89 Headache type: other headache syndrome (1) Headache Headache type: other headache syndrome Qualified Code(s): G44.89 - Other headache syndrome
[2023-12-07 08:12] VITALS: RESP 20
[2023-12-07] MEDS: CLOPIDOGREL BISULFATE 75 MG TAB PO SCH (09:00)
--- NOTE | 2023-12-07 11:03 | XCELERA ---
[id number] \\[id number]
[2023-12-07 11:36] VITALS: BP 123/69; PULSE 72; TEMP 98.1; O2SAT 94
[2023-12-07] MEDS ORDERED: STROKE PATIENT DISCHARGE STA (11:54)
--- NOTE | 2023-12-07 16:04 | Discharge Summary ---
<Statement entered by Leatha Mojica MD - 12/07/23 17:01> I have reviewed vital signs, chart notes, labs and imaging. I have also discussed the management of the patient with the SAE and I agree with the exam findings documented in the history and physical examination and the documented assessment and plan unless otherwise stated below. His presentation is consistent with complex migraine. He does have stroke risk factors however episode was not particularly TIA-like, associated with a migrainous type headache, symptoms resolved and brain MRI is negative. With respect to risk factor reduction he is already on DOAC and Plavix chronically, he is already on simvastatin with LDL of 40, A1c is mildly elevated at 5.8% unchanged from 2 years ago counseled to increase activity and follow a healthy diet, he has no significant stenoses on CTA head and neck that would prompt a vascular intervention. Discharge Summary Date of Service December 07, 2023 Principal Dx & Hospital Course #1 = Principal Diagnosis (1) Stroke-like symptoms: Symptoms resolved when seen but still having some blurring vision. CVA vs. complex migraine. Patient was seen by Neurology who felt symptoms were mostly likely headache syndrome. Recs were to avoid dehydration. Brain MRI showed no intracranial findings. [facility] - recommend continued follow up. Given advance age and LDL previously < 70 will continue on his usual simvastatin. Continue clopidogrel TTE showed no significant changes since last ECHO in 2010. (2) Headache: Stroke-like symptom workup as above. Headache resolved. Patient reports the headache was similar to prior headaches that have been diagnosed as migraines Acetaminophen PRN (3) A-fib: Paroxysmal Continue Xarelto for anticoagulation (4) Parkinsonism: Continue Sinemet as prescribed by Neurology. Plan Discharge to home with . Admission HPI Per Admitting Provider Christopher Haskins is an 83 year old male with Parkinson's disease who presents to the ER with sudden blurring of vision with left cheek and left hand paresthesias. Symptoms started on 12/06/2023 between 7:30am and 8am with blurred vision, left facial tingling and left hand tingling. No facial droop, extremity weakness, change in speech or hearing. He has otherwise been in his normal state of health. Since admission, his bilateral vision blurring has been improving and he is able to read more. Paresthesias have resolved. His notes a similar episode a few years ago and diagnosed with complex migraine at that time. He denies any headache today. The only remaining symptom is some mild bilateral blurred vision. He [facility] and he follows with them as instructed. Denies any CP, SOB, weakness or paresthesias. Discharge Exam Constitutional WD/WN, vitals as above Eyes PERRL, conjunctivae normal, anicteric sclerae EOM intact bilaterally; normal pupil size and no EOM movement deficit Neck normal visual inspection and trachea midline Respiratory normal respiratory effort; no respiratory distress and no cough Auscultation: lungs clear to auscultation bilaterally Cardiovascular RRR, no murmur, no edema Gastrointestinal (Abdomen) normal bowel sounds, soft, nontender, no hepatosplenomegaly Musculoskeletal Extremities: strength 5/5 throughout Skin no rashes and no lesions Neurologic awake Speech / Cognition: normal speech Motor/Sensory: no tremor and no sensory deficit Cranial Nerves: PERRL, EOM intact bilaterally, normal facial strength and tongue midline Psychiatric A+Ox3, euthymic affect Discharge Plan Discharge Items Patient Disposition: Home - Self-Care Reason For Visit: STROKE LIKE SYMTOMS Discharge Diagnosis: Complex Migraine Activity: Resume your previous activity Non-emergency contact: Primary Care Provider Call non-emergency contact if: your symptoms worsen Follow-up/Referrals: Christopher Lawler MD [Primary Care Provider] - Diet: Regular Addtl Attending Provider Instructions: - Increase activity level as tolerated. - Monitor for worsening symptoms and seek medical attention if worsening. - Your echo was unchanged from your previous. - Follow up with your PCP Risk Factors for Stroke: You can reduce your chances of stroke by working with your medical provider to adopt a healthy lifestyle. Some specific ways to lower your chance of stroke are: * If you are a smoker, now is the time to stop smoking cigarettes * If you are diabetic, improve the control of your blood sugars * Avoid excessive amounts of alcohol * Control high blood pressure * Lose weight if you are overweight * Be sure to lead an active lifestyle * Eat a healthy diet low in salt, cholesterol and fat You should know about other risk factors for stroke that you are unable to control. These include: * Age 55 years or older * Male gender * Certain racial groups: , or / * Family History of Stroke, Mini stroke or Heart Attack * Sickle Cell Disease Follow Up: It is important for you to keep your follow up appointments with your medical provider. Who to Call and When: Medical Emergencies: Call 911 immediately if you experience any of the following warning signs and symptoms of Stroke: * Sudden numbness or weakness of the face, arm or leg, especially on one side of the body * Sudden confusion, trouble speaking or understanding * Sudden trouble seeing in one or both eyes * Sudden trouble walking, dizziness, loss of balance or coordination * Sudden severe headache with no cause Do not delay calling 911 if you experience any warning signs or symptoms of a stroke. Delay in seeking medical attention may affect what treatments can be given to you. . Pending Studies at Discharge: No Stand-Alone Forms: [facility], Smoking Cessation Medications and DC Order Prescriptions: Continued rivaroxaban 20 mg tablet 20 mg PO DAILY Qty: 30 11RF albuterol sulfate [ProAir HFA] 90 mcg/actuation HFA aerosol inhaler 2 puff INH Q6H PRN (Reason: shortness of breath or wheezing) Qty: 6.7 1RF clopidogrel 75 mg tablet 75 mg PO QAM Qty: 90 3RF simvastatin 10 mg tablet 10 mg PO HS Qty: 90 3RF levothyroxine 175 mcg tablet 175 mcg PO DAILYBB carbidopa-levodopa [Sinemet] 25-100 mg tablet 1 tab PO TID 30 Days Qty: 90 6RF cyanocobalamin (vitamin B-12) [Vitamin B-12] 500 mcg Tablet 500 mcg PO QAM ascorbic acid (vitamin C) [Vitamin C] 500 mg Tablet 500 mg PO QAM ferrous sulfate [Iron (ferrous sulfate)] 325 mg (65 mg iron) Tablet 325 mg PO QAM One A Day Men Complete 240-25-300 mcg Tablet 1 tab PO DAILY metoprolol succinate 25 mg tablet extended release 24 hr 25 mg PO QPM Discharge Orders: Discharge Order (Routine); Ordered 12/07/23 Ordered By: Joanna De La Cruz/Other Patient Handouts: Symptoms of Stroke Admission Data Admit Date/Time: 12/06/23 10:15 Attending Provider: Leatha Mojica Admit Provider: Riaz Salazar Primary Care Provider: Christopher Lawler Other Providers: Riaz Salazar; Christopher Chavez Other Interventions: Discharge Summary Assessment (RN) Last Done: 12/07/23 12:01 Hospital Stay Data Consultations 12/06/23 10:08 ED Decision to Admit Stat 12/06/23 12:15 Consult Neurology Routine Diagnostic Imagining Performed 12/06/23 08:57 CT angio head w con Stat CT angio neck with con Stat CT head/brain wo con Stat 12/06/23 10:06 MRI Brain [MR brain wo con] Stat Pending Results Patient Have Any Pending Studies at Discharge: No Discharge Instructions Given to Patient (Per Discharging Provider) - Increase activity level as tolerated. - Monitor for worsening symptoms and seek medical attention if worsening. - Your echo was unchanged from your previous. - Follow up with your PCP Risk Factors for Stroke: You can reduce your chances of stroke by working with your medical provider to adopt a healthy lifestyle. Some specific ways to lower your chance of stroke are: * If you are a smoker, now is the time to stop smoking cigarettes * If you are diabetic, improve the control of your blood sugars * Avoid excessive amounts of alcohol * Control high blood pressure * Lose weight if you are overweight * Be sure to lead an active lifestyle * Eat a healthy diet low in salt, cholesterol and fat You should know about other risk factors for stroke that you are unable to control. These include: * Age 55 years or older * Male gender * Certain racial groups: , or / * Family History of Stroke, Mini stroke or Heart Attack * Sickle Cell Disease Follow Up: It is important for you to keep your follow up appointments with your medical provider. Who to Call and When: Medical Emergencies: Call 911 immediately if you experience any of the following warning signs and symptoms of Stroke: * Sudden numbness or weakness of the face, arm or leg, especially on one side of the body * Sudden confusion, trouble speaking or understanding * Sudden trouble seeing in one or both eyes * Sudden trouble walking, dizziness, loss of balance or coordination * Sudden severe headache with no cause Do not delay calling 911 if you experience any warning signs or symptoms of a stroke. Delay in seeking medical attention may affect what treatments can be given to you. . Total Time Total Time Spent Total Time Spent (In Minutes): 30 [place] [address] IN/OBS DISCH 30 MIN/LESS Patient Type Established Exam Expanded Problem Focused Diagnoses Stroke-like symptoms R29.90 Other headache syndrome G44.89 Headache type: other headache syndrome A-fib I48.91 Parkinsonism G20.C
[2023-12-07] MEDS ORDERED: RIVAROXABAN 20 MG TAB PO SCH (16:30)
== END 2023-12-07 12:41 | disposition home or self-care (01) ==
LOC: 2N 08:50 → ED 08:50 → SUATTDRO 10:15 → 2N 11:51